=== PATIENT | male | born 1985 | race African-American/Black ===

== ENCOUNTER 2018-10-08 12:38 | Emergency (ER) | payer MEDICAID ==
[~2018-10-08] VITALS: Ht 175.3 cm; Wt 90.0 kg
[2018-10-08 13:55] LABS: BASOPHILS % 0.8 % (0.0-2.0); EOSINOPHILS % 1.8 % (0.0-5.0); HEMATOCRIT. 46.7 % (42.0-52.0); HEMOGLOBIN. 15.6 g/dL (14.0-18.0); LYMPHOCYTES % 21.8 % (20.0-50.0); MEAN CORPUSCULAR HEMOGLOBIN 29.8 pg (28.0-32.0); MEAN CORPUSCULAR VOLUME 89.3 fL (80.0-94.0); NEUTROPHILS % 69.6 % (40.0-76.0); PLATELET 154 x1000/uL (130-400); RED BLOOD CELL COUNT 5.23 mill/uL (4.7-6.1); RED CELL DISTRIBUTION WIDTH 13.5 % (11.6-14.6)
[2018-10-08 14:02] LABS: CHLORIDE 104 mEq/L (98-107)
[2018-10-08 14:06] LABS: ETHANOL BLOOD < 10 mg/dL
[2018-10-08 14:07] LABS: CLARITY URINE CLEAR (CLEAR); COLOR URINE YELLOW (YELLOW); KETONES URINE TRACE (NEGATIVE); LEUKOCYTE ESTERASE URINE NEGATIVE (NEGATIVE); NITRITE URINE NEGATIVE (NEGATIVE); OCCULT BLOOD URINE 1+ (NEGATIVE); PROTEIN URINE 1+ (NEGATIVE); SPECIFIC GRAVITY URINE 1.013 (1.005-1.030); UROBILINOGEN URINE 0.2 E.U./dL (0.2-1.0)
[2018-10-08 14:15] LABS: CARBAMAZEPINE < 0.5 ug/mL (4-12); PHENOBARBITAL < 2.1 ug/mL (15.0-40.0)
[2018-10-08] MEDS ORDERED: SODIUM CHLORIDE 0.9% 1,000 ML IV ONE (14:26)
[2018-10-08 14:33] LABS: *AMPHETAMINES SCREEN URINE NEGATIVE (NEGATIVE); *BARBITURATES SCREEN URINE NEGATIVE (NEGATIVE); *BENZODIAZEPINES SCREEN URINE NEGATIVE (NEGATIVE); CANNABINOID URINE SCREEN NEGATIVE (NEGATIVE); PHENCYCLIDINE URINE SCREEN NEGATIVE (NEGATIVE)
[2018-10-08 14:34] LABS: *COCAINE SCREEN URINE PRESUMTIVE POSITIVE (NEGATIVE); METHADONE URINE SCREEN NEGATIVE (NEGATIVE); OPIATES URINE SCREEN NEGATIVE (NEGATIVE)
[2018-10-08] MEDS ORDERED: LEVETIRACETAM 500MG PREMIX 100 ML IV ONE (15:00)
[2018-10-08 16:15] VITALS: BP 120/75
== END 2018-10-08 16:35 | disposition home or self-care (01) ==
LOC: ER 12:38
DX: G40.909 Epilepsy, unspecified, not intractable, without status epilepticus (principal); S60.511A Abrasion of right hand, initial encounter; S80.212A Abrasion, left knee, initial encounter; S80.211A Abrasion, right knee, initial encounter; F14.10 Cocaine abuse, uncomplicated; Z91.018 Allergy to other foods; V43.52XA Car driver injured in collision with other type car in traffic accident, initial encounter; Y93.89 Activity, other specified; Y92.488 Other paved roadways as the place of occurrence of the external cause
CPT/HCPCS: 36415; 70450; 73130; 80053; 80156; 80165; 80184; 80185; 80305; 80320; 81003; 85025; 96365; 99284; J1953; J7030; G0480

== ENCOUNTER 2021-05-15 14:46 | Emergency (ER) | payer MEDICAID ==
[~2021-05-15] VITALS: Ht 172.7 cm; Wt 90.0 kg
[2021-05-15] MEDS ORDERED: depakote (14:57)
[2021-05-15 14:58] VITALS: BP 121/84
[2021-05-15] MEDS ORDERED: SODIUM CHLORIDE 0.9% 1,000 ML IV ONE (16:30)
== END 2021-05-15 17:51 | disposition left against medical advice (07) ==
LOC: ER 14:46
DX: R56.9 Unspecified convulsions (principal); Z91.018 Allergy to other foods
CPT/HCPCS: 99283; J7030

== ENCOUNTER 2021-11-16 14:40 | Emergency (ER) | payer MEDICAID ==
[~2021-11-16] VITALS: Ht 182.9 cm; Wt 91.0 kg
[~2021-11-16 14:40] MED LIST: depakote
[2021-11-16 15:02] VITALS: BP 115/73
== END 2021-11-16 16:40 | disposition left against medical advice (07) ==
LOC: ER 14:40
DX: R56.9 Unspecified convulsions (principal); Z91.018 Allergy to other foods; Z13.9 Encounter for screening, unspecified
CPT/HCPCS: 99283

== ENCOUNTER 2022-03-26 07:19 | Emergency (ER) | payer MEDICAID ==
[~2022-03-26] VITALS: Ht 177.8 cm; Wt 95.0 kg
[2022-03-26 09:07] LABS: BASOPHILS % 0.5 % (0.0-2.0); HEMATOCRIT. 46.9 % (42.0-52.0); HEMOGLOBIN. 15.6 g/dL (14.0-18.0); LYMPHOCYTES % 28.7 % (20.0-50.0); MEAN CORPUSCULAR HEMOGLOBIN 29.4 pg (28.0-32.0); MEAN CORPUSCULAR VOLUME 88.1 fL (80.0-94.0); MEAN PLATELET VOLUME 10.7 fl (7.4-10.4); NEUTROPHILS % 58.8 % (40.0-76.0); PLATELET 195 x1000/uL (130-400); RED BLOOD CELL COUNT 5.32 mill/uL (4.7-6.1); RED CELL DISTRIBUTION WIDTH 13.8 % (11.6-14.6)
[2022-03-26 09:16] LABS: CHLORIDE 104 mEq/L (98-107)
[2022-03-26 10:00] VITALS: BP 200/174
[2022-03-26] MEDS ORDERED: LEVETIRACETAM 500MG TABLET PO ONE (10:15)
[2022-03-26] MEDS ORDERED: VALPROIC ACID 250MG CAPSULE PO ONE (10:15)
[2022-03-26] MEDS ORDERED: LEVE1000 MT (10:45)
[2022-03-26] MEDS ORDERED: DIVA500T3 MT (10:45)
== END 2022-03-26 11:36 | disposition home or self-care (01) ==
LOC: ER 07:19
DX: G40.509 Epileptic seizures related to external causes, not intractable, without status epilepticus (principal); Z91.018 Allergy to other foods
CPT/HCPCS: 36415; 80053; 80165; 85025; 99283

== ENCOUNTER 2022-09-14 15:28 | Emergency (ER) | payer MEDICAID ==
[~2022-09-14] VITALS: Ht 177.8 cm; Wt 85.0 kg
[~2022-09-14 15:28] MED LIST changes: +DIVA500T3 MT; +LEVE1000 MT
[2022-09-14 16:27] LABS: BASOPHILS % 0.4 % (0.0-2.0); EOSINOPHILS % 5.4 % (0.0-5.0); HEMATOCRIT. 44.4 % (42.0-52.0); HEMOGLOBIN. 14.9 g/dL (14.0-18.0); LYMPHOCYTES % 27.7 % (20.0-50.0); MEAN CORPUSCULAR HEMOGLOBIN 29.9 pg (28.0-32.0); MEAN CORPUSCULAR VOLUME 88.9 fL (80.0-94.0); MONOCYTES % 6.6 % (2.0-8.0); NEUTROPHILS % 59.9 % (40.0-76.0); PLATELET 142 x1000/uL (130-400); RED CELL DISTRIBUTION WIDTH 13.4 % (11.6-14.6)
[2022-09-14 16:39] LABS: CHLORIDE 103 mEq/L (98-107)
[2022-09-14 16:47] LABS: ETHANOL BLOOD < 10 mg/dL
[2022-09-14] MEDS ORDERED: DIVA500T3 MT (17:22)
[2022-09-14 17:34] VITALS: BP 128/89
== END 2022-09-14 17:36 | disposition home or self-care (01) ==
LOC: ER 15:37
DX: R56.9 Unspecified convulsions (principal)
CPT/HCPCS: 36415; 80053; 80165; 80320; 85025; 99283; 99284; G0480